=== PATIENT | female | born 1950 | race Caucasian/White ===

== ENCOUNTER 2019-03-09 16:57 | Emergency (ER) | payer OTHER ==
[~2019-03-09] VITALS: Ht 165.1 cm; Wt 94.3 kg
--- OUTSIDE RECORDS SUMMARY | 2019-03-09 16:59 | XMS REPORT | Continuity of Care Document ---
Author Author Jason ulises [facility] Interface Address Unknown Phone Unavailable Problems Problem Status Onset Date Classification Date Reported Comments Source Z12.31 - ENCNTR SCREEN MAMMOGRAM FOR MA Active 01/25/2016 [facility] [place] [place] Medications Medication Details Route Status Patient Instructions Ordering Provider Order Date Source Allergies, Adverse Reactions, Alerts Substance Category Reaction Severity Reaction type Status Date Reported Comments Source Immunizations Immunization Date Given Site Status Last Updated Comments Source Results Order Name Results Value Reference Range Date Interpretation Comments Source Ext Lower Venous Doppler Unilat US Ext Lower Venous Doppler Unilat US EXAM: US LEFT LOWER EXTREMITY VENOUS DOPPLER DATE: 09/08/2017 9:08 AM CDT INDICATION: - I80.209 Phlebitis and thrombophlebitis of unspecified deep vessels of unspecified lower extremity. History of prior DVT in the left leg 3 months ago with continued swelling and pain in the left calf. ADDITIONAL INFORMATION: Patient is on Xarelto therapy. COMPARISON: 05/27/2017. TECHNIQUE: Multiplanar grayscale, color Doppler and spectral Doppler ultrasound images of the left lower extremity veins. FINDINGS: Left Thigh Veins: Common Femoral: Patent. Femoral (SFV): Patent. Popliteal: Patent. Proximal Greater Saphenous: Patent. Deep Femoral Veins: Patent. Left Calf Veins: Paired Peroneal: Patent. Posterior Tibial Calf: Patent. IMPRESSION: Normal. No deep venous thrombosis (DVT). Previously demonstrated deep venous thrombosis in the left superficial femoral, popliteal, and posterior tibial veins as resolved sonographically. 09/08/2017 - - Read by: Bear Bryson MD Dictated Date/time: 09/08/17 10:02 Electronically Signed by: Bear Bryson MD 09/08/17 10:04 FINAL REPORT [facility] Spine cervical wo contrast MRI Spine cervical wo contrast MRI MRI CERVICAL SPINE WITHOUT CONTRAST 08/20/2017 3:57 PM CDT TECHNIQUE: Multiplanar multisequence imaging of the cervical spine was performed without administration of intravenous gadolinium. COMPARISON: 02/06/2016 ultrasound exam. FINDINGS: Multilevel disc desiccation is seen. C1-C2: Unremarkable. C2-C3: Minimal left asymmetric posterior osteophytes. No central canal or foraminal stenosis. C3-C4: 2.8 mm disc bulge with mild central canal stenosis. Bilateral foraminal osteophytes and moderate left facet arthrosis, with moderate to severe left and mild right foraminal stenosis. C4-C5: 3 mm posterior disc osteophyte complex and mild ligamenta flava redundancy with moderate central canal stenosis and cord indentation. Bilateral severe bilateral foraminal stenosis due to foraminal osteophytes and uncovertebral joint arthrosis. C5-C6: 3 mm disc bulge with mild central canal stenosis and minimal cord indentation. Severe bilateral foraminal stenosis due to foraminal osteophytes and UVJ arthrosis. C6-C7: 2 mm posterior disc osteophyte complex with mild central canal stenosis. No cord indentation. Severe right and moderate left foraminal stenosis due to foraminal osteophytes. C7-T1: Mild facet arthrosis with mild bilateral foraminal stenosis. No central canal stenosis. The cervical cord signal is unremarkable without MRI evidence of myelomalacia. T1-T2 and T2-T3 moderate to severe foraminal stenosis due to facet arthrosis. IMPRESSION: 1. Multilevel disc degenerative disease and spondylosis. 2. C4-C5 moderate central canal stenosis. C3-C4, C5-C6, C6-C7 mild central canal stenosis. Corresponding cord indentation present with normal cervical cord signal is maintained. 3. Multilevel moderate to severe foraminal stenosis. 08/20/2017 - - Read by: Rubin Villarreal MD Dictated Date/time: 08/21/17 09:49 Electronically Signed by: Rubin Villarreal MD 08/21/17 09:55 FINAL REPORT FANY Sorto Ext Lower Venous Doppler Unilat US Ext Lower Venous Doppler Unilat US Exam: Left lower extremity Doppler venous ultrasound. Reason for Exam: - left leg swelling Comparison Exam: None Discussion: Real-time grayscale, color Doppler imaging, and spectral waveform analysis was performed of the left lower extremity deep venous system. High-grade extensive thrombi are seen within the deep venous system involving the distal superficial femoral vein, popliteal vein, and posterior tibial vein. Findings discussed with Dr. Moore on 05/19/2017 at 1417 hours. Impression: 1. High-grade extensive thrombi are seen within the deep venous system involving the distal superficial femoral vein, popliteal vein, and posterior tibial vein. 05/27/2017 - - Read by: Eddie Stafford MD Dictated Date/time: 05/27/17 14:10 Electronically Signed by: Eddie Stafford MD 05/27/17 14:18 FINAL REPORT [facility] Digital Mammo Screening Reynaldo MA Digital Mammo Screening Reynaldo MA - DIGITAL MAMMO SCREENING REYNALDO MA BILATERAL DIGITAL SCREENING MAMMOGRAM WITH CAD: 02/06/2016 CLINICAL: Screening. Current study was evaluated with a Computer Aided Detection (CAD) system. Comparison is made to exams dated: 09/27/2009 mammogram and 10/18/2009 mammogram - [facility]. The tissue of both breasts is heterogeneously dense, which could obscure detection of small masses. There are benign calcifications in both breasts. No significant masses, calcifications, or other findings are seen in either breast. There has been no significant interval change. IMPRESSION: BENIGN There is no mammographic evidence of malignancy. A 1 year screening mammogram is recommended. Anirudh Triplett M.D. cm/penrad:02/06/2016 14:03:23 Volleyball Player: Lina ARGUETA(Spencer)(M), [facility] This exam was dictated and interpreted by [id number] for REBECCA Sorto. letter sent: Normal exam Mammogram BI-RADS: 2 Benign 02/06/2016 - - Read by: Jose E Liu MD Dictated Date/time: 02/06/16 14:03 Electronically Signed by: Jose E Liu MD 02/06/16 14:03 FINAL REPORT [facility] [place] [facility] Head/Neck US Soft Tissue Head/Neck US THYROID ULTRASOUND INDICATION:Right thyroid nodule COMPARISON: None DISCUSSION: The thyroid gland is normal in size and mostly homogeneous in echotexture. The right lobe measures 3.9 x 1.2 x 1.6 cm. The left lobe measures 5.1 x 1.5 x 1.2 cm. The isthmus measures 0.4 cm in width. There is a 1.4 cm hypoechoic nodule of the mid right lobe. There is a 4 mm hypoechoic nodule of the mid left lobe and a 1.3 cm isoechoic nodule at the inferior pole of the left lobe. IMPRESSION: Multinodular thyroid. Consider fine-needle aspiration of the dominant right lobe nodule for cytological diagnosis. Six-month follow-up thyroid ultrasound may be beneficial to demonstrate stability. SL:16 02/06/2016 - - Read by: Eugenio Madsen MD Dictated Date/time: 02/06/16 15:30 Electronically Signed by: Eugenio Madsen MD 02/06/16 15:33 FINAL REPORT FANY Mcdonald Vital Signs Vital Sign Value Date Comments Source Encounters Location Location Details Encounter Type Encounter Number Reason For Visit Attending Provider ADM Date DC Date Status Source [facility] [place] [facility] [id number] Ernestine Ling 02/06/2016 02/07/2016 FANY Mcdonald [facility] [place] [facility] [id number] Ernestine Ling 05/27/2017 05/28/2017 F[facility] [place] [facility] [id number] Laly Ramos 08/20/2017 08/21/2017 FANY [facility] [place] [facility] [id number] Daniel Nolan 09/08/2017 09/09/2017 [facility] [place] Procedures Procedure Code Date Perfomer Comments Source
--- OUTSIDE RECORDS SUMMARY | 2019-03-09 16:59 | XMS REPORT | Summary of Care ---
Author Author [facility] Outpatient Imaging [facility] Address Unknown Phone Unavailable Encounter HQ Encntr_alias(FIN) [id number] Date(s): 09/08/17 - 09/08/17 [facility] Outpatient Imaging [facility] [address] [facility], [address] [place] [phone] Discharge Disposition: Home or Self Care Attending Physician: Daniel Nolan MD Vital Signs No data available for this section Problem List No data available for this section Allergies, Adverse Reactions, Alerts No data available for this section Medications No data available for this section Results No data available for this section Immunizations No data available for this section Procedures No data available for this section Social History No data available for this section Assessment and Plan No data available for this section
--- OUTSIDE RECORDS SUMMARY | 2019-03-09 16:59 | XMS REPORT | Summary of Care ---
Author Author [facility] [place] Organization [facility] [place] Address Unknown Phone Unavailable Encounter HQ Encntr_alias(FIN) [id number] Date(s): 08/20/17 - 08/20/17 [facility] - [place] [address] [place] [phone] Discharge Disposition: Home or Self Care Attending Physician: Laly Ramos MD Vital Signs No data available for [...]
--- OUTSIDE RECORDS SUMMARY | 2019-03-09 16:59 | XMS REPORT | Summary of Care ---
Author Author [facility] Outpatient Imaging [facility] [place] Address Unknown Phone Unavailable Encounter HQ Encntr_alias(FIN) [id number] Date(s): 02/06/16 - 02/06/16 [facility] Outpatient Imaging [address] [address] [phone] Discharge Disposition: Home Attending Physician: Ernestine Ling MD Vital Signs No data available for [...]
--- OUTSIDE RECORDS SUMMARY | 2019-03-09 16:59 | XMS REPORT | Summary of Care ---
Author Author [facility] Outpatient [facility] - [place] Organization [facility] [place] Address Unknown Phone Unavailable Encounter HQ Encntr_alias(FIN) [id number] Date(s): 05/27/17 - 05/27/17 [facility] Outpatient [facility] - [place] [address] [place] [phone] Discharge Disposition: Home or Self Care Attending Physician: Ernestine Ling MD Vital Signs [...]
[2019-03-09] MEDS ORDERED: SODIUM CHLORIDE 0.9% 1000ML 1,000 ML IV ONE (17:15)
[2019-03-09 17:25] LABS: BASOPHILS % 0.9 % (0.0-1.0); EOSINOPHILS # (AUTO) 0.1 (0.0-0.4); HEMATOCRIT 41.8 % (34.2-44.1); HEMOGLOBIN 14.6 g/dL (12.0-16.0); LYMPHOCYTES % 21.9 % (18.0-39.1); MEAN CORPUSCULAR HEMOGLOBIN 32.9 pg (28-32); MEAN CORPUSCULAR HGB CONC 34.9 g/dL (31-35); MEAN CORPUSCULAR VOLUME 94.1 fL (81-99); MONOCYTES # (AUTO) 0.4 (0.2-0.8); MONOCYTES % 8.8 % (4.4-11.3); PLATELET COUNT 166 x10e3/uL (140-360); RED BLOOD COUNT 4.44 x10e6/uL (3.6-5.1); RED CELL DISTRIBUTION WIDTH 12.1 % (11.7-14.4)
[2019-03-09 17:37] LABS: ALBUMIN 3.8 g/dL (3.5-5.0); ALBUMIN/GLOBULIN RATIO 1.1 (0.8-2.0); BILIRUBIN,URINE NEGATIVE (NEGATIVE); CALCIUM 9.3 mg/dL (8.4-10.2); CLARITY,URINE CLEAR (CLEAR); COLOR,URINE YELLOW (YELLOW); CREATININE, SERUM 0.96 mg/dL (0.57-1.11); KETONES,URINE NEGATIVE (NEGATIVE); LEUKOCYTE ESTERASE ,URINE NEGATIVE (NEGATIVE); NITRITE,URINE NEGATIVE (NEGATIVE); PROTEIN,URINE DIPSTICK NEGATIVE (NEGATIVE); URINE UROBILINOGEN 0.2 mg/dL (0.2 - 1)
[2019-03-09] MEDS ORDERED: INSULIN LISPRO 100 UNIT/1 ML 3ML VIAL SQ STA (17:50)
[2019-03-09] MEDS ORDERED: SODIUM CHLORIDE 0.9% 1000ML 1,000 ML IV SCH (18:00)
[2019-03-09] MEDS ORDERED: INSULIN REGULAR, HUMAN 100 UNIT/1 ML 3ML VIAL IV ONE (18:00)
--- NOTE | 2019-03-09 19:05 | NUR ---
Bedside report completed with [employer] shift leader RN. Pt is in no acute distress at this time.
[2019-03-09] MEDS ORDERED: INSULIN GLARGINE 100 UNITS/ML VIAL ONE (19:40)
[2019-03-09] MEDS ORDERED: INSULIN GLARGINE 100 UNITS/ML VIAL SQ SCH (19:45)
[2019-03-09] MEDS ORDERED: INSULIN GLARGINE 100 UNITS/ML VIAL SQ ONE ×2 (19:45)
[2019-03-09 19:53] VITALS: BP 114/77
== END 2019-03-09 20:20 | disposition home or self-care (01) ==
LOC: ER 16:57
DX: E11.65 Type 2 diabetes mellitus with hyperglycemia (principal); E78.5 Hyperlipidemia, unspecified; D69.6 Thrombocytopenia, unspecified; Z86.718 Personal history of other venous thrombosis and embolism; Z91.14 Patient's other noncompliance with medication regimen
CPT/HCPCS: 36415; 80053; 81001; 82948; 85025; 99283; J1815; J1817; J7030

== ENCOUNTER 2024-08-01 10:22 | Emergency (ER) | payer OTHER ==
[~2024-08-01] VITALS: Ht 165.1 cm; Wt 90.7 kg
[2024-08-01 10:25] VITALS: TEMP 98.7
[2024-08-01] MEDS ORDERED: ARIMIDEX1 MG PO (10:52)
[2024-08-01] MEDS ORDERED: GABAPENTIN300 MG PO (10:52)
[2024-08-01] MEDS ORDERED: OZEMPIC0.25 MG/02 SQ (10:52)
[2024-08-01 12:45] VITALS: PULSE 69; RESP 16; O2SAT 100
[2024-08-01] MEDS ORDERED: DOXYCYCLINE HY100 MG PO (12:46)
== END 2024-08-01 13:00 | disposition home or self-care (01) ==
LOC: ER 10:43
DX: R60.9 Edema, unspecified (principal); E11.9 Type 2 diabetes mellitus without complications; E78.5 Hyperlipidemia, unspecified; Z86.718 Personal history of other venous thrombosis and embolism; Z87.19 Personal history of other diseases of the digestive system
CPT/HCPCS: 93970; 99283